=== PATIENT | male | born 1960 | race Caucasian/White ===

== ENCOUNTER 2020-05-07 19:21 | Emergency (ER) | payer OTHER ==
[~2020-05-07] VITALS: Ht 185.4 cm; Wt 106.1 kg
--- NOTE | 2020-05-07 19:28 | NUR ---
Pt arrives with [employer], cuffed and reported to have been combative. He is hollering and repeating type scenarios. Dr. Castanedafs at bedside at triage and verbal received to pull emergently im meds (ativan 2 mg , haldol 10mg, benedryl 50 mg). Meds just given.
[2020-05-07] MEDS ORDERED: haloperidol lactate 5mg/ml inj IM ONE ×2 (19:30→19:35)
[2020-05-07] MEDS ORDERED: diphenhydrAMINE 50 mg/ml inj IM ONE ×2 (19:30→19:35)
[2020-05-07] MEDS ORDERED: LORazepam 2 mg/ml vial IM ONE ×2 (19:30→19:35)
--- NOTE | 2020-05-07 19:57 | NUR ---
Pt daughter (Deedee) . PT history given by daughter. Pt tested Covid negative approx one month ago before procedure at [facility] for a choclear implant. Manic behavior began shortly after procedure. Pt has no medication allergies and does not take any medications for chronic conditions. Daughter says during manic phases pt is oriented only to place, has pressure speech, scattered thoughts, flight of ideas, and leaves home (runs away). Family has video of examples of behavior. Pt has been to [facility] for behavioral issues and CT was taken. Pt left [facility] AMA. Daughter states Dr. 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
--- NOTE | 2020-05-07 20:30 | NUR ---
Pt place on O2 2L for periodic desaturation to 88% while sleeping.
[2020-05-07] MEDS ORDERED: NO HOME MEDS (20:43)
[2020-05-07 20:45] LABS: BASOPHILS # (AUTO) 0.1 X10'3 (0-0.2); BASOPHILS % (AUTO) 0.5 % (0-1); EOSINOPHILS % (AUTO) 0.1 % (0-6); HEMATOCRIT 42.3 % (42.0-52.0); HEMOGLOBIN 14.4 g/dl (14.0-17.9); LYMPHOCYTES # (AUTO) 1.5 X10'3 (1.1-4.8); LYMPHOCYTES % (AUTO) 14.1 % (21-51); MEAN CORPUSCULAR HEMOGLOBIN 30.3 PG (27.0-31.0); MEAN CORPUSCULAR VOLUME 89.3 FL (78-98); MEAN PLATELET VOLUME 6.4 FL (7.4-10.4); MONOCYTES % (AUTO) 8.7 % (2-12); NEUTROPHILS # (AUTO) 8.4 X10'3 (1.8-7.7); NEUTROPHILS % (AUTO) 76.6 % (42-75); PLATELET COUNT 490 X10'3 (140-440); RED BLOOD COUNT 4.74 X10'6 (4.70-6.10); WHITE BLOOD COUNT 10.9 X10'3 (4.5-11.0)
[2020-05-07 20:49] LABS: ALANINE AMINOTRANSFERASE 74 U/L (12-78); ALBUMIN 3.1 G/DL (3.4-5.0); ALKALINE PHOSPHATASE 101 IU/L (46-116); ANION GAP 5 (8-16); ASPARTATE AMINO TRANSFERASE 30 U/L (10-37); BLOOD UREA NITROGEN 19 MG/DL (7-18); BUN/CREATININE RATIO 11.2 (5.4-32.0); CALCIUM 9.3 MG/DL (8.5-10.1); CHLORIDE 103 MMOL/L (99-107); GLUCOSE 125 MG/DL (70-104); POTASSIUM 4.3 MMOL/L (3.5-5.1); SODIUM 135 MMOL/L (135-145); TOTAL CARBON DIOXIDE 26.7 MMOL/L (24-32); TOTAL PROTEIN 6.3 G/DL (6.4-8.2); eGFR 41 ML/MIN
[2020-05-07 20:50] LABS: ETHANOL < 0.010 GM/DL (0.0-0.010)
[2020-05-07 21:15] LABS: URINE AMPHETAMINE SCREEN NEGATIVE (Neg); URINE BARBITUATE SCREEN NEGATIVE (Neg); URINE BENZODIAZEPINES SCREEN NEGATIVE (Neg); URINE CANNABINOID SCREEN POSITIVE (Neg); URINE COCAINE SCREEN NEGATIVE (Neg); URINE METHADONE SCREEN NEGATIVE (Neg); URINE OPIATE SCREEN NEGATIVE (Neg); URINE PHENCYCLIDINE SCREEN NEGATIVE (Neg)
--- NOTE | 2020-05-07 21:57 | NUR ---
pt lactic 3.5 but does not meet sepsis critera. 1 L NS given and 2 hour lactic cancelled
--- NOTE | 2020-05-07 22:50 | NUR ---
Pt removed from restraints with standby by security. Pt seems to be calmer, but is still confused and does not remember any activities or behavior that let to him being brought to the ER. Pt given green scrubs, bedding changed, and given warm blankets. Pt following directions
--- NOTE | 2020-05-07 23:13 | NUR ---
PATIENT'S PACKET WAS SENT [facility].
--- NOTE | 2020-05-07 23:47 | NUR ---
upon arrival to . Patient was disoriented and was difficult to transfer from wheelchair to bed.patient is currently sleeping on gurney w/o difficulty.
--- NOTE | 2020-05-07 23:56 | NUR ---
See vital signs under behavioral restrain flow chart Q15 min.
--- NOTE | 2020-05-08 04:12 | NUR ---
patient got up to use the bathroom. He appeared more coherent and was able to walk to the bathroom unassisted. He stated that he wanted to go home.
--- NOTE | 2020-05-08 06:30 | NUR ---
Resting with eyes closed, respirations normal.
--- NOTE | 2020-05-08 07:34 | NUR ---
Pt awake and drinking water. Dr Gibson at bedside.
--- NOTE | 2020-05-08 09:46 | NUR ---
Breaking primary RN, pt is supine in bed, regular breathing present, no needs at this time
--- NOTE | 2020-05-08 10:00 | NUR ---
Patient seen by [facility] Clyde Martins, working with plan for treatment, medical vs psychological
--- NOTE | 2020-05-08 10:57 | NUR ---
breaking primary RN, pt is on the phone with his , begging her to come and get him, stasrting to get agitated
--- NOTE | 2020-05-08 11:09 | NUR ---
Up out of bed walking around. Stating he needs to leave this place annelise and go home to his "happy place to my $4000 bed"
[2020-05-08] MEDS ORDERED: OLANZapine 5mg rapidly disint. tablet PO ONE (12:00)
--- NOTE | 2020-05-08 12:17 | NUR ---
Patient becoming agitated and insisting that we call his and daughters to come and get him and that he is "leaving to go home to my happy place after lunch" Patient confused and restless and remains on [address] Gibson who ordered zyprexa dose. Patient given and currently laying in bed quietly.
[2020-05-08 17:57] VITALS: BP 147/93
--- NOTE | 2020-05-08 19:54 | NUR ---
Pt resting in bed at change of shift. Pt asks for a warm blanket and is wearing eye mask and states "Can I just sleep now?" pt denies s/i. Pt is resting in bed comfortable rr even and unlabored.
--- NOTE | 2020-05-08 20:14 | NUR ---
received p/c from [facility] pt has been accepted and will be transferred to [facility] this evening. Pt is currently in bed asleep resting comfortably. RR even and unlabored no s/s of distress.
--- NOTE | 2020-05-08 20:30 | NUR ---
clerk checker came back and woke pt for paperwork signatures, pt became agitated and telling her he wasnt wearing his hearing aid and as far as he is concerned he doesnt need to be here and he wants to go home and watch tv and he is going to refuse treatment. States he doesnt want to be here any longer. Explained to patient he has been accepted to [facility] and will be going upstairs tonight. Pt states "I dont care where you send me, I'm going to refuse treatment that's my right."
== END 2020-05-08 20:47 ==
LOC: ER 19:22 → UNDOADMIN 05-08 16:45 → ADULT MH 05-08 16:45 → ER 05-08 20:47
DX: F29 Unspecified psychosis not due to a substance or known physiological condition (principal); R41.82 Altered mental status, unspecified
CPT/HCPCS: 36415; 80053; 80305; 80320; 83605; 84145; 85025; 96372; 99285; J1200; J1630; J2060

== ENCOUNTER 2020-05-08 19:42 | Inpatient (IN) | payer OTHER ==
[~2020-05-08] VITALS: Ht 185.4 cm; Wt 106.0 kg
[~2020-05-08 19:42] MED LIST: NO HOME MEDS
[2020-05-08] MEDS ORDERED: acetaminophen 325mg tablet PO PRN ×2 (21:35)
[2020-05-08] MEDS ORDERED: loperamide 2mg capsule PO PRN (21:35)
[2020-05-08] MEDS ORDERED: magnesium hydroxide 30ml (MOM) UD suspension PO PRN (21:35)
[2020-05-08] MEDS ORDERED: mag hydrox/Alum hydrox/simeth 30ml oral suspension PO PRN (21:35)
--- NOTE | 2020-05-08 21:53 | NUR ---
Admission Note: Pt admitted to [facility] from [facility] ED on a 5150 hold for GD. Pt recently had surgery to remove an acoustic neuroma and daughter reports that since surgery, pt has become increasingly manic and agitated. Daughter called the police when pt was in his backyard naked, yelling at "god" all day. Pt was aggressive with ED staff and required 3 police officers and 3 security guards to subdue pt. Pt is cooperative for assessment but is easily agitated and appears manic.
--- NOTE | 2020-05-09 05:59 | NUR ---
Contact for patients Daughter Deedee [phone], interested in being patients POA.
[2020-05-09 08:00] VITALS: BP 132/90
[2020-05-09 08:35] LABS: CHOL/HDL RATIO 3.3 (0.00-4.99); CHOLESTEROL 173 MG/DL (0-200); HDL CHOLESTEROL 52 MG/DL (35-60); LDL CHOLESTEROL 98 MG/DL (50-100); TRIGLYCERIDES 153 MG/DL (20-135)
--- NOTE | 2020-05-09 14:36 | NUR ---
Nursing Progress Note: Legal hold: 5150 Client on involuntary status for GD/DTO Report received from Pricila GRISSOM with use of SBAR Why are they here: Pt admitted to [facility] from [facility] ED on a 5150 hold for GD. Pt recently had surgery to remove an acoustic neuroma and daughter reports that since surgery, pt has become increasingly manic and agitated. Daughter called the police when pt was in his backyard naked, yelling at "god" all day. Pt was aggressive with ED staff and required 3 police officers and 3 security guards to subdue pt. Pt is cooperative for assessment but is easily agitated and appears manic. Assessment What has happened this shift: Received pt in bed. Pt agreeable to lab draw and am assessment. Pt perspective on reasons for admission is different from written documentation. Pt calm and cooperative, but believes he shouldnt be here and blames it on his son in law. Pt denies depression, denies suicidal and homicidal ideation. Pt denies hallucinations. Pt caring for hygiene, attends meals but not groups. S/I, H/I: denies A/VH: denies Sleep: naps periodically ADL's: independent, initiated shaving Group attendance: no Were meds taken: n/a Any med S/E: no Mental Status Exam Appearance: hospital green scrubs Eye contact: good Behavior: appropriate Speech: clear and appropriate Mood: irritated that he is here Affect: appropriate to situation, calm Thought process: intact Thought Content: r/t not belonging here Cognition: unclear whether it is intact r/t situation Insight: fair Judgment: fair Interventions PRN's used: n/a Therapeutic interventions: Maintained a safe and therapeutic environment, provided clear and simple instructions, encouraged independent performance of ADLs and participation on the unit, bowel management, provided active listening, and maintained Q 15min safety checks. Restraints/seclusion/emergency medication: n/a Justification of Continued Inpatient Treatment: Patient requires interruption of current crisis, medication adjustments, and a safe and supportive environment.
[2020-05-09 20:12] VITALS: BP 127/92
[2020-05-10] MEDS: traZODone 50mg tablet PO PRN ×2 (00:17→21:22)
[2020-05-10] MEDS: LORazepam 1 MG tablet PO PRN ×2 (00:20→22:43)
--- NOTE | 2020-05-10 01:27 | NUR ---
Nursing Progress Note: Legal hold: 5150 Client on involuntary status for GD/DTO Report received from Edgar Thompson RN with use of SBAR Why are they here: Pt admitted to [facility] from [facility] ED on a 5150 hold for GD. Pt recently had surgery to remove an acoustic neuroma and daughter reports that since surgery, pt has become increasingly manic and agitated. Daughter called the police when pt was in his backyard naked, yelling at "God" all day. Pt was aggressive with ED staff and required 3 police officers and 3 security guards to subdue pt. Pt is cooperative for assessment but is easily agitated and appears manic. Assessment What has happened this shift: Since shift change, patient was found sleeping in bed. Approx 2200, patient awakened requesting a pitcher of water and a bag of chips. Pt observed to be calm and cooperative. Pt also requested headphone to listen to music. Pt denies depression, denies suicidal and homicidal ideation. Pt denies hallucinations. Pt well groomed. Then approx 0000, pt requested PRN Ativan and trazodone to assist with sleep. S/I, H/I: denies A/VH: denies Sleep: Fatigued ADL's: independent Group attendance: no Were meds taken: yes: lorazepam and Ativan Any med S/E: no Mental Status Exam Appearance: hospital green scrubs Eye contact: good Behavior: appropriate Speech: clear and appropriate Mood: irritated that he is here Affect: appropriate to situation, calm Thought process: intact Thought Content: comfortability while in care Cognition: unclear whether it is intact r/t situation Insight: fair Judgment: fair Interventions PRN's used: n/a Therapeutic interventions: Maintained a safe and therapeutic environment, provided clear and simple instructions, encouraged independent performance of ADLs, maintained nutritional needs, provided active listening, and maintained Q 15min safety checks. Restraints/seclusion/emergency medication: n/a Justification of Continued Inpatient Treatment: Patient requires interruption of current crisis, medication adjustments, and a safe and supportive environment.
[2020-05-10 07:00] VITALS: BP 134/82
[2020-05-10 08:00] VITALS: BP 134/82
--- NOTE | 2020-05-10 16:14 | NUR ---
Nursing Progress Note Legal hold: 5150 Client on involuntary status for GD/DTO Report received from Pricila GRISSOM with use of SBAR Why are they here: Pt admitted to [facility] from [facility] ED on a 5150 hold for GD. Pt recently had surgery to remove an acoustic neuroma and daughter reports that since surgery, pt has become increasingly manic and agitated. Daughter called the police when pt was in his backyard naked, yelling at "god" all day. Pt was aggressive with ED staff and required 3 police officers and 3 security guards to subdue pt. Pt is cooperative for assessment but is easily agitated and appears manic. Assessment What has happened this shift: Received pt in bed sleeping w/o distress at beginning of shift. Pt cooperative with vitals and assessments. Pt eats well and attends meals in community room. Pt does not attend groups, as he is unable to hear what is being said. Pt able to hear close up with hearing aid in his ear. Pt spoke about issues in his life; wifes illness, his work interuption, pain in back and knees, need to pay bills. Pt does not want to be here and wants to leave. He is pleasant and cooperative yet frustrated as to why he is here; that he feels misunderstood and cant take care of personal business. Pts daughter dropped off hearing aid batteries and his glasses. S/I, H/I: denies A/VH: denies Sleep: naps periodically ADL's: independent Group attendance: no Were meds taken: n/a Any med S/E: n/a Mental Status Exam Appearance: in green scrubs Eye contact: good Behavior: appropriate, frustrated Speech: clear and appropriate Mood: irritated that he is here Affect: appropriate to situation, calm Thought process: intact Thought Content: r/t not belonging here Cognition: unclear whether it is intact r/t situation Insight: fair Judgment: fair Interventions PRN's used: n/a Therapeutic interventions: Maintained a safe and therapeutic environment, provided clear and simple instructions, encouraged independent performance of ADLs and participation on the unit, bowel management, provided active listening, and maintained Q 15min safety checks. Restraints/seclusion/emergency medication: n/a Justification of Continued Inpatient Treatment: Patient requires interruption of current crisis, medication adjustments, and a safe and supportive environment.
[2020-05-10 21:00] VITALS: BP 134/88
[2020-05-10] MEDS ORDERED: QUEtiapine 25mg tablet PO SCH (21:00)
--- NOTE | 2020-05-11 03:08 | NUR ---
Nursing Progress Note: Legal hold: 5150 Client on involuntary status for GD/DTO Report received from Ramon extruder operator with use of SBAR Why are they here: Pt admitted to [facility] from [facility] ED on a 5150 hold for GD. Pt recently had surgery to remove an acoustic neuroma and daughter reports that since surgery, pt has become increasingly manic and agitated. Daughter called the police when pt was in his backyard naked, yelling at "God" all day. Pt was aggressive with ED staff and required 3 police officers and 3 security guards to subdue pt. Pt is cooperative for assessment but is easily agitated and appears manic. Assessment What has happened this shift: pt in room at shift change; pleasant; reports he plans on leaving today as he's been here x72hrs; stated earlier he wanted to get some sleep & his doctor ordered him medication to help; seoquel was given & went to sleep shortly thereafter till 2242 when pt requested ativan to help him get back to sleep; pt able to return back to sleep til 0150; up to bathroom & reported "medication gave him a dry mouth"; has been sleeping since S/I, H/I: denies A/VH: denies Sleep: Fatigued ADL's: independent Group attendance: no Were meds taken: yes: Any med S/E: drowsy Mental Status Exam Appearance: hospital green scrubs Eye contact: good Behavior: appropriate Speech: clear and appropriate Mood: irritated that he is here Affect: appropriate to situation, calm Thought process: intact Thought Content: content while in care Cognition: unclear whether it is intact r/t situation Insight: fair Judgment: fair Interventions PRN's used: n/a Therapeutic interventions: Maintained a safe and therapeutic environment, provided clear and simple instructions, encouraged independent performance of ADLs, maintained nutritional needs, provided active listening, and maintained Q 15min safety checks. Restraints/seclusion/emergency medication: n/a Justification of Continued Inpatient Treatment: Patient requires interruption of current crisis, medication adjustments, and a safe and supportive environment.
[2020-05-11 07:25] VITALS: BP 130/99
--- NOTE | 2020-05-11 09:20 | NUR ---
PSYCHOSOCIAL ASSESSMENT Eder is a 59 y/o male who was admitted to [facility] from [facility] ED on a 5150 hold for danger to self and others. He recently had surgery to remove an acoustic neuroma and daughter reported that since surgery he has become increasingly manic and agitated. Daughter called the police when Eder was in his backyard naked, yelling at God all day. He was aggressive with ED staff and required 3 police officers and 3 security guards to subdue him. He has been cooperative on the unit. Eder was quite talkative during the assessment and told multiple stories from his childhood as what appeared to be a way of explaining his behaviors. He was upset that he is on the unit and blamed his family for this. "My family is making choices for me and I'm suffering the consequences". He reported multiple stressors including his own physical health issues (knees, back, and recent surgery) as well as financial concerns associated with his 's illness and stress with caring for her. At one point he stated, "I was in a deep depression". He also reported feeling sleep deprived and when abstract writer inquired about his sleep at home he reported he sleeps great on his $3000 bed at home. He reported he cannot sleep on the beds here, they bother his back. Eder reported he has lost 50 lbs since he turned 59 in October. He reported he wants to lose 10 more lbs to get to 60 lbs. He reported he has been swimming at [facility] as a means of exercise. Eder was vague about the events that led to this hospitalization. He recounted his hospital stay and surgery at [facility] as well as his visit at [facility] and then again at [facility]. When asked about the direct events that happened prior to this admission he stated he was putting on an "SNL skit to address certain issues". He indicated he was also talking to God, "God was here for my and I pushed him away". He mentioned several times how he had been "all set up" at [facility] as a way for him to heal from his surgery without being a burden to his . He noted that he has been planning on leaving his in July. Eder denied any previous mental health treatment or hospitalizations. His mood was a bit labile in that he was joking around at times and tearful at others. He exhibited very little insight into his recent behaviors and whay his family is concerned. He did admit to a recent "dark depression". Eder would like to return home, however, he told his family that he does not intend on staying in the house and it is unclear where he would go. His family is quite concerned that Eder will get discharged prior to making and progress or improvement. HIMA Roca Addendum: 05/11/20 at 0920 by Sangeeta Rivero SS Amended: Links added.
[2020-05-11] MEDS ORDERED: QUET25TA34 PO (14:30)
[2020-05-11] MEDS ORDERED: ATI1T PO (14:30)
[2020-05-11] MEDS ORDERED: TRAZ-251 PO (14:30)
--- NOTE | 2020-05-11 14:54 | NUR ---
DISCHARGE PLANNING Eder's 5150 expires later today. He denied any current SI or HI and has a plan to return home with his . He is aware his daughter Deedee is staying at the house as well. He reported he will follow up with his primary care provider, EVONNE Reynoso. He reported he has a follow up with [facility] for his implant on May 29. Spoke with his daughter, Deeede ([phone]), to discuss discharge planning. She reported they can pick him up. Suggested they call police or [facility] and provided the ph # to [facility] in the event that Eder's behavior becomes odd, erratic, and or dangerous. Scheduled Eder's follow up appt with PCP on 05/22/20 at 9:30 AM. Apprised daughter of appointment. HIMA Roca
--- NOTE | 2020-05-11 16:10 | NUR ---
DISCHARGE NURSING PROGRESS NOTE: Pt discharged home. Pt belongings returned and signed by pt and this nurse. Pt discussed his grandchildren and what they were planning to do when he gets home. Pt denied SI stating, "I would never do that because of my children and grandchildren." Pt's picked him up to take him home. Denies smoking
== END 2020-05-11 16:10 | disposition home or self-care (01) | DRG 885 ==
LOC: ADULT MH 21:28
PROVIDERS: ADMIT Psychiatry & Neurology Psychiatry; ATTEND Psychiatry & Neurology Psychiatry
DX: F23 Brief psychotic disorder (principal); G89.29 Other chronic pain; M17.0 Bilateral primary osteoarthritis of knee; F12.20 Cannabis dependence, uncomplicated; M54.89 Other dorsalgia; Z79.899 Other long term (current) drug therapy
CPT/HCPCS: 36415; 80061; 83036; 87081